=== PATIENT | female | born 1990 | race Caucasian/White ===

== ENCOUNTER 2019-06-23 10:20 | Emergency (ER) | payer OTHER, SELFPAY ==
[2019-06-23 10:26] VITALS: BP 139/90; PULSE 71; RESP 16; TEMP 36.5; O2SAT 100
--- NOTE | 2019-06-23 11:02 | ED.URI ---
HPI - URI/Sore Throat General Chief Complaint: Upper Respiratory Infection Stated Complaint: sinus issues/facial pain Time Seen by Provider: 06/23/19 10:55 Source: patient and RN notes reviewed Mode of arrival: ambulatory Limitations: no limitations History of Present Illness HPI Narrative: Patient presents today with a 10-day history of sinus pressure, nasal congestion with yellow drainage, frontal headache. Reports she had a sore throat and cough initially, but these have resolved. Denies ear pain, fever, sweats or chills. She has been taking Mucinex, vitamin C, Benadryl, and Tylenol without relief. MD elicited complaint: nasal congestion and sinus pain Related Data Home Medications Medication Instructions Recorded Confirmed Vitamin D-3 with Aloe 06/23/19 ascorbic acid (vitamin C) 1 g PO DAILY 06/23/19 06/23/19 magnesium 06/23/19 Allergies Allergy/AdvReac Type Severity Reaction Status Date / Time No Known Allergies Allergy Unverified 07/11/13 12:52 Review of Systems Review of Systems: Narrative: CONSTITUTIONAL: Denies body aches, fever, chills, or sweats. EYES: Denies visual changes, redness, or discharge. ENT: Denies rhinorrhea, sore throat, or otalgia.+ Nasal congestion, sinus pressure right CARDIOVASCULAR: Denies chest pain, palpitations, or edema. RESPIRATORY: Denies cough or dyspnea. GASTROINTESTINAL: Denies abdominal pain, nausea, vomiting, or diarrhea. GENITOURINARY: Denies dysuria or hematuria. SKIN: Denies rash, itching, or wounds. MUSCULOSKELETAL: Denies back pain, joint pain, or myalgia. NEUROLOGIC: Denies numbness, tingling, or weakness.+ Frontal headache PSYCH: Denies depression or anxiety. [facility] Family History Family History (Updated 12/22/15 @ 23:19 by DOCTOR UNKNOWN) Father Hypertension Grandparent Family history of malignant neoplasm of breast Other Family history of malignant neoplasm of male breast Social History Social History Alcohol intake: never Comments At time of signature, I have reviewed and agree with nursing past medical, surgical, social and family history unless otherwise noted. Please see nursing chart for further information. There is no relevant family history pertinent to the presenting complaint Exam Narrative: Exam Narrative: GENERAL: Well-appearing, well-nourished, and in no acute distress. HEAD: Normocephalic, atraumatic. EYES: EOMI. No redness or drainage. Conjunctivae normal. ENT: Mucous membranes pink and moist. Nares congested. No rhinorrhea. TMs normal bilaterally. Throat normal. Uvula midline. Maxillary and frontal sinus tenderness. NECK: Normal AROM. Supple. No lymphadenopathy. CHEST: No respiratory distress. Clear to auscultation. HEART: Regular rate and rhythm. No murmur appreciated. Normal peripheral pulses. EXTREMITIES: Normal range of motion. No edema. SKIN: Warm, dry, no rash. NEURO: No focal deficits. Alert and oriented x3. Gait steady. PSYCH: Normal affect. No signs of depression or anxiety. Course Vital Signs Vital signs: Vital Signs Temperature 97.7 F 06/23/19 10:26 Pulse Rate 71 06/23/19 10:26 Respiratory Rate 16 06/23/19 10:26 Blood Pressure 139/90 06/23/19 10:26 Pulse Oximetry 100 06/23/19 10:26 Temperature 97.7 F 06/23/19 10:26 Pulse Rate 71 06/23/19 10:26 Respiratory Rate 16 06/23/19 10:26 Blood Pressure 139/90 06/23/19 10:26 Pulse Oximetry 100 06/23/19 10:26 Reviewed. Pt has been instructed to follow up with her PCP regarding her elevated blood pressure today. MDM - URI/Sore Throat Differential Diagnosis Differential diagnosis: Likely upper respiratory infection, otitis media, sinusitis and viral infection Critical Care Time Critical Care Time Critical Care Time: No Discharge Plan Discharge Clinical Impression: Sinusitis Qualifiers: Sinusitis location: unspecified location Chronicity: acute Recurrence: not specified as recurrent Qualified Code(s): J01.9
== END 2019-06-23 11:14 | disposition home or self-care (01) ==
PROVIDERS: Emergency Provider Nurse Practitioner
DX: J01.90 Acute sinusitis, unspecified (principal)
CPT/HCPCS: 99203; G0463